=== PATIENT | male | born 1970 | race Caucasian/White ===

== ENCOUNTER 2016-03-25 09:48 | Observation (INO) | payer BC ==
[~2016-03-25] VITALS: Ht 170.2 cm; Wt 84.4 kg
[2016-03-25] MEDS ORDERED: ASPIRIN 81 MG CHEW TAB ONE (09:55)
[2016-03-25] MEDS ORDERED: NITROGLYCERIN SL 0.4 MG TAB SL PRN (13:10)
[2016-03-25] MEDS ORDERED: TRAMADOL 50 MG TAB PO PRN (13:10)
[2016-03-25] MEDS ORDERED: ALU/MAG/SIM 30 ML UDC PO PRN (13:10)
[2016-03-25] MEDS ORDERED: MORPHINE 2 MG/ML SYR IV PRN (13:10)
[2016-03-25] MEDS ORDERED: TEMAZEPAM 7.5 MG CAP PO PRN (13:10)
[2016-03-25] MEDS ORDERED: LORAZEPAM 0.5 MG TAB PO PRN (13:10)
[2016-03-25] MEDS ORDERED: SALINE FLUSH 10 ML FLUSH PRN (13:10)
[2016-03-25] MEDS ORDERED: DOCUSATE SOD 100 MG CAP PO PRN (13:10)
[2016-03-25] MEDS ORDERED: ONDANSETRON 4 MG VIAL IV PRN (13:10)
[2016-03-25] MEDS ORDERED: TEMAZEPAM 15 MG CAP PO PRN (13:10)
[2016-03-25] MEDS ORDERED: ACETAMINOPHEN 325 MG TAB PO PRN (13:10)
[2016-03-25 15:04] VITALS: BP_SYST 126; BP_SYST 129; RESP 18; TEMP 97.7
[2016-03-25 15:05] VITALS: Ht 170.2 cm; Wt 84.4 kg
[2016-03-25 15:32] VITALS: RESP 18
[2016-03-25] MEDS ORDERED: NITROGLYCERIN 2% OINT 1 INCH PKT TOPICAL SCH (18:00)
[2016-03-25] MEDS ORDERED: SALINE FLUSH 10 ML FLUSH SCH (20:00)
[2016-03-26] MEDS ORDERED: SODIUM CHLORIDE 0.9% FLUSH BAG 500 ML IV SCH (06:00)
[2016-03-26] MEDS ORDERED: ASPIRIN 81 MG CHEW TAB PO SCH (08:00)
== END 2016-03-25 20:18 | disposition left against medical advice (07) ==
LOC: ENRESERVDT → ENRESERVTM → ER 09:48 → EMR 13:10 → PCU 14:44
PROVIDERS: ADMIT Internal Medicine Cardiovascular Disease; ATTEND Internal Medicine Cardiovascular Disease
DX: R07.9 Chest pain, unspecified (principal)
CPT/HCPCS: 36415; 71010; 80053; 82550; 82553; 83735; 84484; 85025; 85610; 85730; 93005; 94799